=== PATIENT | male | born 1960 | race Two or more races ===

== ENCOUNTER 2019-04-04 06:05 | Inpatient (IN) | payer MEDICARE ==
[2019-04-04] VITALS (16 sets, daily range): BP systolic 119–145; BP diastolic 65–89
[~2019-04-04] VITALS: Ht 177.8 cm; Wt 76.2 kg
[~2019-04-04 06:05] MED LIST: PROSCAR5 MG ORAL
[2019-04-04] MEDS ORDERED: LR 1000ml 1,000 ML IVLG SCH (07:03)
--- NOTE | 2019-04-04 07:04 | Anethesia Preoperative Eval ---
Anesthesia Pre-op PMH/ROS General Date of Evaluation: Apr 04, 2019 Time of Evaluation: 08:01 Anesthesiologist: Scout ASA Score: ASA 2 Mallampati Score Class I : Soft palate, uvula, fauces, pillars visible Class II: Soft palate, uvula, fauces visible Class III: Soft palate, base of uvula visible Class IV: Only hard plate visible Mallampati Classification: Class I Surgeon: Dominique Diagnosis: R Hip Pain Surgical Procedure: R Hip Total Arthroplasty Anesthesia History: none Family History: no anesthesia problems Allergies: Coded Allergies: No Known Allergies (Unverified , 04/04/19) Medications: see eMAR Patient NPO?: Yes Past Medical History Cardiovascular: Reports: HTN Gastrointestinal/Genitourinary: Reports: GERD Musculoskeletal/Integumentary: Reports: OA PSxH Narrative: Appendectomy Anesthesia Pre-op Phys. Exam Physician Exam Vital Signs Date Time Temp Pulse Resp B/P (MAP) Pulse Ox O2 Delivery O2 Flow Rate FiO2 04/04/19 07:24 98.6 74 18 141/83 (102) 99 04/04/19 07:26 Room Air Constitutional: NAD Neurologic: CN 2-12 intact Cardiovascular: RRR Respiratory: CTA Gastrointestinal: S/NT/ND Airway Exam Mallampati Score: Class I MO: full ROM: full Teeth: intact Anesthesia Pre-op A/P Risk Assessment & Plan Assessment: ASA 2 Plan: GA, SED, Spinal Status Change Before Surgery: No Pre-Antibiotics Dru Grams Ancef IV Given Within 1 Hr of Incision: Yes Time Given: 08:31 Ariel Butterfield MD Apr 04, 2019 07:04
[2019-04-04] MEDS ORDERED: EPINEPHrine 1mg/1ml Amp ONE (07:05)
[2019-04-04] MEDS ORDERED: cloNIDine 1000mcg/10ml inj ONE (07:05)
[2019-04-04] MEDS ORDERED: Bupivacaine 0.5% Inj 30 ml vial INJ ONE (07:06)
[2019-04-04] MEDS ORDERED: Propofol 200mg/20ml IV ONE (07:10)
[2019-04-04] MEDS ORDERED: Dexamethasone 4mg/ml vial ONE (07:10)
[2019-04-04] MEDS ORDERED: Sodium Chloride 10ml vial INJ ONE (07:10)
[2019-04-04] MEDS ORDERED: Lidocaine 1% MPF 10mg/ml 5ml ONE ×2 (07:10→07:58)
[2019-04-04] MEDS ORDERED: Bacitracin 50000 Units Vial ONE (07:11)
[2019-04-04] MEDS ORDERED: NeoSporin Gu Irrig 1ml Amp IRRIG ONE (07:11)
[2019-04-04] MEDS ORDERED: Midazolam 2mg/2ml Inj IVP PRN (07:15)
[2019-04-04] MEDS ORDERED: Meperidine 25mg/0.5ml Inj (FOR RIGORS ONLY) IV PRN (07:15)
[2019-04-04] MEDS ORDERED: DiphenhydrAMINE 50mg/ml Inj IVP PRN (07:15)
[2019-04-04] MEDS ORDERED: fentaNYL 100 mcg/2 mL IV PRN (07:15)
[2019-04-04] MEDS ORDERED: HYDROcodone/Acetamin 7.5/325 tab ORAL PRN (07:15)
[2019-04-04] MEDS ORDERED: LORazepam Inj 2mg/ml 1ml IV PRN (07:15)
[2019-04-04] MEDS ORDERED: Ketorolac 30mg Inj IV PRN ×2 (07:15)
[2019-04-04] MEDS ORDERED: Hydromorphone 0.5mg/0.5ml inj IVP PRN (07:15)
[2019-04-04] MEDS ORDERED: Atropine Sulfate 0.4mg/ml inj IVP PRN (07:15)
[2019-04-04] MEDS ORDERED: oxyCODONE HCL/Acetaminophen 5/325mg ORAL PRN (07:15)
[2019-04-04] MEDS ORDERED: Metoclopramide 10mg/2ml Inj IVP PRN (07:15)
[2019-04-04] MEDS ORDERED: Tranexamic Acid 100 ML IVPB ONE (07:15)
[2019-04-04] MEDS ORDERED: Tranexamic Acid 1,000 MG in NS 65 ML IV ONE (07:15)
[2019-04-04] MEDS ORDERED: Labetalol 5mg/ml 20ml vial IV PRN (07:15)
[2019-04-04] MEDS ORDERED: HYDROcodone/Acetamin 5/325 tab ORAL PRN ×3 (07:15→15:45)
[2019-04-04] MEDS ORDERED: NS Irrig 2000ml IRRIG ONE ×2 (07:38→08:51)
[2019-04-04] MEDS ORDERED: NS Irrig 1000ml ONE (08:00)
[2019-04-04] MEDS ORDERED: Sterile Water Irrig 1000ml IRRIG ONE (08:00)
[2019-04-04] MEDS ORDERED: LR 1000ml ONE (08:00)
--- NOTE | 2019-04-04 08:00 | Pre-Procedure Note/Attestation ---
Pre-Procedure Note/Attestation Complete Prior to Procedure Planned Procedure: right Procedure Narrative: right total hip Indications for Procedure Pre-Operative Diagnosis: right hip arthritis Attestation I attest that I discussed the nature of the procedure; its benefits; risks and complications; and alternatives (and the risks and benefits of such alternatives ), prior to the procedure, with the patient (or the patient's legal territory representative). I attest that, if there was a reasonable possibility of needing a blood transfusion, the patient (or the patient's legal territory representative) was given the [facility] standardized written summary, pursuant to the Papito Iglesia Blood Safety Act ([place] Health and Safety Code # 1645, as amended). I attest that I re-evaluated the patient just prior to the surgery and that there has been no change in the patient's H&P, except as documented below: Mayank Fox MD Apr 04, 2019 08:00
--- NOTE | 2019-04-04 08:02 | Brief Operative Note ---
Immediate Post Operative Note Operative Note Pre-op Diagnosis: right hip arthritis Procedure: right total hip Post-op Diagnosis: rightb hip arthritis Post-op Diagnosis: same as pre-op Findings: consistent w/pre-op dx studies Surgeon: carmella Anesthesia: general Specimen: yes Complications: none Condition: stable Fluids: min Implant(s) used?: Yes Mayank Fox MD Apr 04, 2019 08:01
--- NOTE | 2019-04-04 08:08 | Immediate Post-Op Evaluation ---
Immediate Post-Op Evalulation Immediate Post-Op Evalulation Procedure: R Hip Total Arthroplasty Date of Evaluation: Apr 04, 2019 Time of Evaluation: 10:25 IV Fluids: 1000 LR Blood Products: 0 Estimated Blood Loss: 75 Urinary Output: 0 Blood Pressure Systolic: 143 Blood Pressure Diastolic: 86 Pulse Rate: 96 Respiratory Rate: 16 O2 Sat by Pulse Oximetry: 100 Temperature (Fahrenheit): 98 Pain Score (1-10): 2 Nausea: No Vomiting: No Complications 0 Patient Status: awake, reacts, patent, none Hydration Status: adequate Dru Grams Ancef IV Given Within 1 Hr of Incision: Yes Time Given: 08:31 Ariel Butterfield MD Apr 04, 2019 08:08
[2019-04-04] MEDS ORDERED: ePHEDrine 50mg/ml Inj ONE ×2 (08:59→09:18)
--- NOTE | 2019-04-04 11:09 | Diagnostic Imaging Report ---
Indication: Right hip pain, intraoperative Technique: One intraoperative view of the pelvis Comparison: none Findings: Intraoperative images demonstrate a right hip hemiarthroplasty prosthesis in place, appears well aligned. Retained air from the surgical exposure seen within the soft tissues. There is a Fernandes catheter Impression: Intraoperative imaging, no unusual features
--- NOTE | 2019-04-04 11:50 | NUR ---
NURSE NOTES: rec'd from pacu sp rt hip replacement/ awake/alert. v/s taken. no c/o pain. rt hip dressing dry and intact. ice pack on. with palpable pedal pulse. in no distress.
[2019-04-04] MEDS ORDERED: Morphine Sulfate 2mg/ml Inj(IV/IM USE ONLY) IVP PRN ×2 (12:00)
[2019-04-04] MEDS ORDERED: Morphine Sulfate 4mg/ml Inj (IV USE ONLY) IVP PRN (12:00)
--- NOTE | 2019-04-04 13:30 | NUR ---
NURSE NOTES: DR Stanley GEORGE NOTIFIED OF PT'S ADM AND RE HOME RECONCILIATION MED LIST. WITH ORDER.
--- NOTE | 2019-04-04 13:30 | NUR ---
NURSE NOTES: DR Stanley CARLSON NOTIFIED OF PT'S ADM.
[2019-04-04] MEDS: D5 1/2NS w/KCl 20mEq 1,000 ML IV SCH (13:55)
--- NOTE | 2019-04-04 15:42 | Diagnostic Imaging Report ---
Indication: Postoperative, status post surgery for hip pain Technique: One view of the pelvis Comparison: one Findings: Complete right hemiarthroplasty prosthesis demonstrated. This appears well aligned. Retained air from the surgical exposure seen in the soft tissues. There is a Fernandes catheter. Impression: Postoperative right hip. No unusual features
[2019-04-04] MEDS: ceFAZolin sod 2 GM in D5W 110 ML IV SCH ×2 (15:53→23:54)
[2019-04-04] MEDS ORDERED: Dronabinol 2.5mg Cap ORAL SCH ×2 (18:00→22:30)
--- NOTE | 2019-04-04 19:00 | NUR ---
NURSE NOTES: AWAKE. IN NO ACUTE DISTRESS.
--- NOTE | 2019-04-04 19:39 | NUR ---
HAND-OFF: Report given to Milton DONATO RN.
--- NOTE | 2019-04-04 20:41 | General Progress Note ---
Assessment/Plan Status Narrative s/p total hip arthroplasty pt ot dvt prophyalxis pain control monitor closely Assessment/Plan: monitor closely will follow dvt prophyalxis pain control PT OT monitor closely discussed with patient at [facility] Subjective Date patient seen: Apr 04, 2019 Time patient seen: 20:37 Constitutional: Reports: no symptoms HEENT: Reports: no symptoms Respiratory: Reports: no symptoms Gastrointestinal/Abdominal: Reports: no symptoms Allergies: Coded Allergies: No Known Allergies (Unverified , 04/04/19) Subjective has a lot of pain Objective Last 24 Hour Vital Signs Date Time Temp Pulse Resp B/P (MAP) Pulse Ox O2 Delivery O2 Flow Rate FiO2 04/04/19 17:51 97.7 04/04/19 15:00 97.7 86 21 145/79 (101) 99 04/04/19 14:00 98.6 77 20 145/76 (99) 98 04/04/19 13:00 97.2 62 19 144/77 (99) 97 04/04/19 12:00 Nasal Cannula 3.0 04/04/19 12:00 98.6 76 21 136/71 (92) 98 04/04/19 11:40 97.5 71 15 125/75 100 Room Air 3 04/04/19 11:30 81 16 124/72 100 Room Air 3 04/04/19 11:15 77 18 131/68 100 Room Air 3 04/04/19 11:05 73 15 122/83 100 Nasal Cannula 3 04/04/19 11:00 68 17 119/65 100 Nasal Cannula 3 04/04/19 10:50 76 19 128/70 100 Nasal Cannula 3 04/04/19 10:40 76 19 124/78 100 Nasal Cannula 3 04/04/19 10:30 79 18 135/80 100 Nasal Cannula 3 04/04/19 10:20 83 20 141/89 100 Nasal Cannula 3 04/04/19 10:14 91 16 134/85 100 Simple Mask 6 04/04/19 10:14 98.0 103 19 143/86 100 Simple Mask 6 04/04/19 10:10 96 16 100 04/04/19 07:26 Room Air 04/04/19 07:24 98.6 74 18 141/83 (102) 99 Height (Feet): 5 Height (Inches): 10.00 Weight (Pounds): 168 General Appearance: WD/WN Neck: normal alignment Cardiovascular: normal rate, regular rhythm, no JVD Respiratory/Chest: lungs clear Abdomen: non tender, soft Extremities: other - no edema Neurologic: alert, other Mauricio Flanagan MD Apr 04, 2019 20:41
[2019-04-04] MEDS: HYDROcodone/Acetamin 10/325 tab ORAL PRN (20:51)
[2019-04-04] MEDS: Dronabinol 2.5mg Cap ORAL SCH (22:24)
[2019-04-05] VITALS (7 sets, daily range): BP systolic 101–123; BP diastolic 63–81
--- NOTE | 2019-04-05 01:23 | NUR ---
NURSE NOTES: Pt keeps on moaning and reporting high levels of pain (7-10). Offered pain medication for 4-5x but pt refused every time as he "does not want to overdo it as I do not know when the norco and the other medication will kick in". Pt made aware to report when he wants to take pain medication. Offered other interventions to help relieve pain as well (ice packs, repositioning, etc.). Addendum: 04/05/19 at 0253 by Chon Lechuga RN Pt have been educated earlier this evening regarding pain medication options available but pt refused the IV pain medication option as he stated he "didn't want anything via IV". Dr. Patel made aware of pt's wishes when Dr. Patel called at [address] Patel discontinued IV pain medications and changed pt's PRN medications. Please see orders for details. Addendum: 04/05/19 at 0257 by Chon Lechuga RN At 0200, pt still keeps complaining of 10/10 pain. Reinforced education of the pain medications available and the importance of managing pain for overall recovery, pt finally asked for oral pain medication and is now willing to take IV pain medication. Dr. Patel made aware of pt's change of decision regarding pain medication options. Awaiting callback.
[2019-04-05] MEDS: HYDROcodone/Acetamin 10/325 tab ORAL PRN ×3 (01:48→20:08)
[2019-04-05] MEDS: D5 1/2NS w/KCl 20mEq 1,000 ML IV SCH ×2 (03:23→16:40)
--- NOTE | 2019-04-05 04:10 | NUR ---
NURSE NOTES: Received a call from Dr. Patel regarding pt's pain medication. Dr. Patel ordered new pain medication. Please see orders for details. He also specifically asked to "give Morphine 3 mg IVP at 0430 and to give Marinol an hour early (at 0530) and if possible, squeeze in to give [place] 10/325 an hour after Marinol (at 0630). Addendum: 04/05/19 at 0638 by Chon Lechuga RN New order repeated back, noted, and carried out.
[2019-04-05] MEDS ORDERED: Morphine Sulfate 4mg/ml Inj (IV USE ONLY) IVP PRN ×2 (04:30→07:30)
[2019-04-05] MEDS: Dronabinol 2.5mg Cap ORAL SCH ×3 (05:40→22:40)
[2019-04-05 06:38] LABS: BASOPHILS % (AUTO) 0.5 % (0.0-2.0); EOSINOPHILS % (AUTO) 0.1 % (0.0-3.0); HEMATOCRIT 36.5 % (42.0-52.0); HEMOGLOBIN 12.9 G/DL (14.2-18.0); LYMPHOCYTES % (AUTO) 16.5 % (20.0-45.0); MEAN CORPUSCULAR VOLUME 89 FL (80-99); MONOCYTES % (AUTO) 11.8 % (1.0-10.0); PLATELET COUNT 176 K/UL (150-450); RED BLOOD COUNT 4.09 M/UL (4.70-6.10); RED CELL DISTRIBUTION WIDTH 11.6 % (11.6-14.8); WHITE BLOOD COUNT 11.3 K/UL (4.8-10.8)
[2019-04-05 07:02] LABS: ANION GAP 8 mmol/L (5-15); BLOOD UREA NITROGEN 7 mg/dL (7-18); CALCIUM 8.9 MG/DL (8.5-10.1); CARBON DIOXIDE 28 MMOL/L (21-32); CHLORIDE 103 MMOL/L (98-107); CREATININE 0.8 MG/DL (0.55-1.30); POTASSIUM 3.8 MMOL/L (3.5-5.1); SODIUM 139 MMOL/L (136-145)
[2019-04-05] MEDS ORDERED: DiphenhydrAMINE 25mg Tab ORAL PRN (07:15)
[2019-04-05] MEDS ORDERED: Chloraseptic Spray 20mL Bottle ORAL PRN (07:15)
[2019-04-05] MEDS ORDERED: Milk of Magnesia 30ml Ud ORAL PRN (07:15)
[2019-04-05] MEDS ORDERED: Ketorolac 30mg Inj IV PRN (07:30)
--- NOTE | 2019-04-05 07:32 | NUR ---
HAND-OFF: Report given to JOEY Holt. Pt is awake and in stable condition. Plan of care endorsed.
--- NOTE | 2019-04-05 07:51 | NUR ---
NURSE NOTES: Pt received awake provided education in regards to pain medication. Encouraged to take medication prior to physical therapy. Current plan will be followed.
--- NOTE | 2019-04-05 08:29 | 48 Hour Post Anesthesia Eval ---
Post Anesthesia Evaluation Procedure: R Hip Total Arthroplasty Date of Evaluation: Apr 05, 2019 Time of Evaluation: 08:28 Blood Pressure Systolic: 116 0: 72 Pulse Rate: 62 Respiratory Rate: 20 Temperature (Fahrenheit): 97.4 O2 Sat by Pulse Oximetry: 98 Airway: patent Nausea: No Vomiting: No Pain Intensity: 3 Hydration Status: adequate Cardiopulmonary Status: stable Mental Status/LOC: patient returned to baseline Follow-up Care/Observations: n/a Post-Anesthesia Complications: none Follow-up care needed: N/A Diogo Mehta MD Apr 05, 2019 08:29
[2019-04-05] MEDS: Docusate 100mg cap ORAL SCH ×2 (08:32→18:12)
[2019-04-05] MEDS: Tamsulosin 0.4mg cap ORAL SCH (08:33)
[2019-04-05] MEDS: Enoxaparin 40mg Inj SUBQ SCH (08:35)
--- NOTE | 2019-04-05 09:15 | Consultation ---
DATE OF CONSULTATION: 04/05/2019 CONSULTING PHYSICIAN: Mauricio Patel M.D. REFERRING PHYSICIAN: Mayank Fox M.D. REASON FOR CONSULTATION: Acute pain consult. HISTORY OF PRESENT ILLNESS: Dear Dr. Mayank Fox, Thank you kindly for consulting me to evaluate and render an opinion as to how to proceed in the management of the patient's acute postoperative right hip pain after right total hip arthroplasty. I saw the patient at the bedside with the nurse RN, Chrissy. I discussed the case with the surgeon, Dr. Fox. I devised the following analgesic plan. I reviewed the medical record in detail. PAST MEDICAL HISTORY: 1. Acute postoperative right hip pain, status post right total hip arthroplasty by Dr. Mayank Fox in March 2019. 2. IV marijuana usage. 3. BPH. ALLERGIES: No known drug allergies. PAST SURGICAL HISTORY: Appendectomy. SOCIAL HISTORY: The patient denies tobacco usage. He denies significant alcohol usage. He smokes marijuana heavily throughout the day. MEDICATIONS: At home, Proscar. REVIEW OF SYSTEMS: Per Dr. Mauricio Flanagan. PHYSICAL EXAMINATION: VITAL SIGNS: Age 58, height 178 centimeters, weight 76 kg, body mass index 24. Vital signs, pain level 8/10 on the visual analog pain scale. Afebrile, pulse 72, respirations 18, blood pressure 113/74, oxygen saturation 96% on room air. I saw the patient at the bedside. I performed detailed history and physical examination. HEENT: Normocephalic and atraumatic. CHEST: Clear to auscultation. HEART: Regular rate and rhythm. ABDOMEN: Soft. EXTREMITIES: Right hip with dry dressing. Significant pain with range of motion. Moving all extremities x4. NEUROLOGIC: Detailed neurologic exam per Dr. Fox. DIAGNOSTIC TESTING: From this morning, postoperative day #1, April 05, 2019 shows white count 11, hematocrit 37, platelets 176. Sodium 139, potassium 3.8, chloride 103, bicarb 28, BUN 7, creatinine 0.8, glucose 113, calcium 8.9. INR 1.0, PTT 25. IMPRESSION: 1. Acute postoperative right hip pain, status post right total hip arthroplasty by Dr. Mayank Fox in March 2019. 2. IV marijuana usage. 3. BPH. TREATMENT RECOMMENDATIONS: I have devised the following analgesic plan to help with this patient's pain control. The patient uses marijuana throughout the day. I will start him on [id number] Marinol 2.5 mg q.8 hours. I encouraged the patient to request the breakthrough doses of morphine and [place], which are available. I trialed him on 3 mg intravenous morphine. This was tolerated, but the patient prefers to avoid parental narcotics as possible. I have increased the dosing to 4 mg and explained to the patient that he likely will have more pain once he begins ambulation, physical therapy training. I encouraged the p.r.n. morphine. Additionally, the patient uses [place] at home p.r.n. I have made available a 10 mg dose every three hours p.r.n. for moderate pain. Dr. Fox has permitted the patient to use IV Toradol as an anti-inflammatory. I have made this dose available at a 30 mg dose every 6 hours p.r.n. for mild pain, with a limit of five doses during this hospital stay. I will place the patient on Pepcid 20 mg b.i.d. for GI ulcer prophylaxis. I have added a p.r.n. dose of Mylanta 30 mL q.6 hours in case of any GERD symptom exacerbation. I have ordered Chloraseptic spray to help with any sore throat complaints postoperatively. I have ordered Benadryl 25 mg orally every 6 hours p.r.n. for itching symptoms. I have ordered Zofran 4 mg intravenously every 4 hours as a rescue antiemetic dose. I have ordered p.r.n. dose of milk of magnesia as a rescue laxative. I have also ordered Colace 100 mg b.i.d. as a stool softener. The patient will be restarted on his home Proscar for his BPH. I have also added Flomax daily as well to help with urinary evacuation. Dr. Fox, has placed the patient on Lovenox 40 mg daily for DVT prophylaxis. I encouraged aggressive incentive spirometer usage with his heavy marijuana smoking usage. I have left a prescription for [place] 50 tablets for outpatient usage. Mauricio Patel M.D. DR: JAZMINE JOB#: [id number] CC:
[2019-04-05] MEDS ORDERED: HYDROcodone/Acetamin 10/325 tab ORAL SCH (09:30)
--- NOTE | 2019-04-05 09:30 | General Progress Note ---
Assessment/Plan Status Narrative S/P THR MINIMAL BLOOD LOSS PT OT DVT RPOPHYALXIS PAINCONTROL DC PLANNING. Assessment/Plan: monitor closely will follow dvt prophyalxis pain control PT OT monitor closely discussed with patient at [facility] Subjective Date patient seen: Apr 05, 2019 Time patient seen: 09:28 Constitutional: Reports: no symptoms HEENT: Reports: no symptoms Cardiovascular: Reports: no symptoms Allergies: Coded Allergies: No Known Allergies (Unverified , 04/04/19) Subjective DOING BETTERE HAS PAIN NO FEVER NO CHILLS NO CHES TPAIN Objective Last 24 Hour Vital Signs Date Time Temp Pulse Resp B/P (MAP) Pulse Ox O2 Delivery O2 Flow Rate FiO2 04/05/19 08:29 62 20 98 04/05/19 04:00 98.9 72 18 113/74 (87) 96 04/05/19 00:00 99.0 73 19 123/71 (88) 98 04/04/19 21:00 Room Air 04/04/19 20:00 98.9 79 21 130/70 (90) 95 04/04/19 17:51 97.7 04/04/19 15:00 97.7 86 21 145/79 (101) 99 04/04/19 14:00 98.6 77 20 145/76 (99) 98 04/04/19 13:00 97.2 62 19 144/77 (99) 97 04/04/19 12:00 Nasal Cannula 3.0 04/04/19 12:00 98.6 76 21 136/71 (92) 98 04/04/19 11:40 97.5 71 15 125/75 100 Room Air 3 04/04/19 11:30 81 16 124/72 100 Room Air 3 04/04/19 11:15 77 18 131/68 100 Room Air 3 04/04/19 11:05 73 15 122/83 100 Nasal Cannula 3 04/04/19 11:00 68 17 119/65 100 Nasal Cannula 3 04/04/19 10:50 76 19 128/70 100 Nasal Cannula 3 04/04/19 10:40 76 19 124/78 100 Nasal Cannula 3 04/04/19 10:30 79 18 135/80 100 Nasal Cannula 3 04/04/19 10:20 83 20 141/89 100 Nasal Cannula 3 04/04/19 10:14 91 16 134/85 100 Simple Mask 6 04/04/19 10:14 98.0 103 19 143/86 100 Simple Mask 6 04/04/19 10:10 96 16 100 Intake and Output 04/04/19 04/05/19 19:00 07:00 Intake Total 685 ml 480 ml Output Total 1250 ml Balance -565 ml 480 ml Intake Oral 300 ml 480 ml IV Total 385 ml Output Urine Total 1250 ml # Voids 1 Laboratory Tests 04/05/19 05:05: White Blood Count 11.3H, Red Blood Count 4.09L, Hemoglobin 12.9L, Hematocrit 36.5L, Mean Corpuscular Volume 89, Mean Corpuscular Hemoglobin 31.5H, Mean Corpuscular Hemoglobin Concent 35.3, Red Cell Distribution Width 11.6, Platelet Count 176, Mean Platelet Volume 5.8L, Neutrophils (%) (Auto) 71.0, Lymphocytes ( %) (Auto) 16.5L, Monocytes (%) (Auto) 11.8H, Eosinophils (%) (Auto) 0.1, Basophils (%) (Auto) 0.5, Prothrombin Time 10.4, Prothromb Time International Ratio 1.0, Activated Partial Thromboplast Time 25, Sodium Level 139, Potassium Level 3.8, Chloride Level 103, Carbon Dioxide Level 28, Anion Gap 8, Blood Urea Nitrogen 7, Creatinine 0.8, Estimat Glomerular Filtration Rate > 60, Glucose Level 113H, Calcium Level 8.9 Height (Feet): 5 Height (Inches): 10.00 Weight (Pounds): 168 Mauricio Flanagan MD Apr 05, 2019 09:30
--- NOTE | 2019-04-05 09:35 | NUR ---
PT EVALUATION NOTE Patient seen for initial evaluation. Patient presents with pain and impaired functional mobility s/p R HARLEY. Patient instructed in THR precautions. Patient able to perform in/OOB tasks with min assist to support RLE, transfers sit <-> stand with CGA and FWW. Patient able to ambulate 150 ft with FWW and CGA, verbal cues to observe safety precautions. Patient will benefit from skilled inpatient PT intervention to address strength, safety and balance for increased level of independence with functional mobility. Anticipate discharge home once medically cleared by MD. Patient will benefit from crutches vs FWW for ambulation depending on patient's progress. Addendum: 04/05/19 at 1223 by ROGER CAMPBELL PT Amended: Links added.
--- NOTE | 2019-04-05 10:04 | NUR ---
NURSE NOTES: Pt refused Morphine after walking with physical therapy " I feel great" Asked to elaborate. " Well my pain is a 6 or a 7. Pain Scale explained. " I will take the other stuff" Toradol explained, and offered despite level being high /10. " I tghink I can sleep without taking anything I am okay".
[2019-04-05] MEDS: Ketorolac 30mg Inj IV PRN (11:47)
--- NOTE | 2019-04-05 13:25 | NUR ---
CASE MANAGEMENT:INITIAL REVIEW 58 YR OLD MALE FOR SCHEDULED SURGERY SI;RIGHT TOTAL HIP REPLACEMENT 99.0 78 20 123/71 96% ON RA IS;IVF D5 @ 75 ML/HR MARINOL PO Q8HRS NORCO PO Q3 HRS SHASHA STATUS DCP;FROM HOME Addendum: 04/05/19 at 1532 by GILES MAYORGA LVN INTERQUAL MET
--- NOTE | 2019-04-05 15:57 | NUR ---
REPORT MANAGER NOTE SW was notified that pt is requesting to meet w/ SW. SW met w/ pt and assessed his need. Pt states he has a question in regards to the possibility of rehabilitation upon DC. Pt resides in [place], [place] and he was staying w/ his family/friends prior to hospitalization. Pt uses a cane/walker for ambulation. Pt has a walker w/ him. IRON informed pt that IRON will relay information to [facility] CM. Eileen SHAIKH is aware. Signed: 04/05/19 at 1600 by HYACINTH PERDUE <Co-Signature Required>
--- NOTE | 2019-04-05 19:38 | NUR ---
NURSE NOTES: Pt reluctant to take Morphine and [place]. States he feels good and the pain is tolerable. Up and out of bed x 4. Stated he would just like to take the Toradol Dr Patel made aware earlier in shift. Tolerated physical therapy well .
--- NOTE | 2019-04-05 19:48 | NUR ---
HAND-OFF: Report given to Gin COOK .
--- NOTE | 2019-04-05 22:06 | NUR ---
NURSES NOTE: Met pt in bed, A/OX4, patient states 6/10 pain in left hip. [place] 10-325mg given. Effective. No outward s/s of distress needed. Breathing is even and unlabored on RA. Pt ambulated going to the bathroom, and in the hallway. Ambulation tolerated well. Abductor in place between thighs. Fernandes catheter in place, urine is light yellow in color with no sediment noted. SCD in place on the L lower extremity. All due meds will be given. Call light within reach. Bed at lowest level. Pt will continue to be monitored.
[2019-04-06] VITALS: BP 116/58
[2019-04-06] MEDS: HYDROcodone/Acetamin 10/325 tab ORAL PRN ×2 (00:09→15:08)
[2019-04-06 04:00] VITALS: BP 112/72
[2019-04-06] MEDS: Dronabinol 2.5mg Cap ORAL SCH ×3 (06:13→22:02)
[2019-04-06 07:14] LABS: BASOPHILS % (AUTO) 0.7 % (0.0-2.0); EOSINOPHILS % (AUTO) 0.8 % (0.0-3.0); HEMATOCRIT 33.4 % (42.0-52.0); HEMOGLOBIN 11.5 G/DL (14.2-18.0); LYMPHOCYTES % (AUTO) 27.9 % (20.0-45.0); MEAN CORPUSCULAR VOLUME 90 FL (80-99); MONOCYTES % (AUTO) 11.6 % (1.0-10.0); NEUTROPHILS % (AUTO) 58.9 % (45.0-75.0); PLATELET COUNT 168 K/UL (150-450); RED BLOOD COUNT 3.71 M/UL (4.70-6.10); RED CELL DISTRIBUTION WIDTH 11.6 % (11.6-14.8); WHITE BLOOD COUNT 8.5 K/UL (4.8-10.8)
[2019-04-06 07:37] LABS: ANION GAP 11 mmol/L (5-15); BLOOD UREA NITROGEN 8 mg/dL (7-18); CALCIUM 8.7 MG/DL (8.5-10.1); CARBON DIOXIDE 25 MMOL/L (21-32); CHLORIDE 103 MMOL/L (98-107); CREATININE 0.9 MG/DL (0.55-1.30); POTASSIUM 3.8 MMOL/L (3.5-5.1); SODIUM 139 MMOL/L (136-145)
--- NOTE | 2019-04-06 07:38 | NUR ---
HAND OFF: Report given to JOEY Palafox. Pt in stable condition.
[2019-04-06 08:00] VITALS: BP 145/81
--- NOTE | 2019-04-06 08:00 | NUR ---
NURSE NOTES: Received report from Lesa COOK, pt a/a/o seating in bbed eating breakfast with no signs of distress or other issues at this time. pt is able to ambulate around the unit with the use of a FWW and staff supervision. IV on the left AC gauge#20 heplock. Fernandes cath in place draining to gravity, total recruiter specialist out put: 1800ml. call light within reach, bed in lowest position, side rales up x2. I will f/u as needed.
[2019-04-06] MEDS: Tamsulosin 0.4mg cap ORAL SCH (08:25)
[2019-04-06] MEDS: Docusate 100mg cap ORAL SCH ×2 (08:25→17:31)
[2019-04-06] MEDS: Enoxaparin 40mg Inj SUBQ SCH (08:25)
--- NOTE | 2019-04-06 08:58 | General Progress Note ---
Assessment/Plan Status Narrative s/p thr doing well constipated Assessment/Plan: physical therpay ot to go to [facility] Subjective Date patient seen: Apr 06, 2019 Time patient seen: 08:57 Allergies: Coded Allergies: No Known Allergies (Unverified , 04/04/19) Subjective mahoney was removed doing ok no bm yet no ches tpain no sob no headache Objective Last 24 Hour Vital Signs Date Time Temp Pulse Resp B/P (MAP) Pulse Ox O2 Delivery O2 Flow Rate FiO2 04/06/19 04:00 98.2 62 18 112/72 (85) 98 04/06/19 00:00 98.4 82 17 116/58 (77) 96 04/05/19 21:00 Room Air 04/05/19 20:00 99.6 80 18 113/75 (88) 97 04/05/19 16:00 98.0 18 120/71 (87) 04/05/19 12:00 99.0 66 101/63 (76) 04/05/19 09:03 97.4 04/05/19 09:00 98.0 78 121/71 (88) 04/05/19 09:00 Room Air Intake and Output 04/05/19 04/06/19 19:00 07:00 Intake Total 700 ml Output Total 400 ml Balance 300 ml Intake Oral 700 ml Output Urine Total 400 ml # Bowel Movements 1 Laboratory Tests 04/06/19 05:00: White Blood Count 8.5, Red Blood Count 3.71L, Hemoglobin 11.5L, Hematocrit 33.4L , Mean Corpuscular Volume 90, Mean Corpuscular Hemoglobin 30.8, Mean Corpuscular Hemoglobin Concent 34.3, Red Cell Distribution Width 11.6, Platelet Count 168, Mean Platelet Volume 6.2L, Neutrophils (%) (Auto) 58.9, Lymphocytes ( %) (Auto) 27.9, Monocytes (%) (Auto) 11.6H, Eosinophils (%) (Auto) 0.8, Basophils (%) (Auto) 0.7, Sodium Level 139, Potassium Level 3.8, Chloride Level 103, Carbon Dioxide Level 25, Anion Gap 11, Blood Urea Nitrogen 8, Creatinine 0.9, Estimat Glomerular Filtration Rate > 60, Glucose Level 111H, Calcium Level 8.7 Height (Feet): 5 Height (Inches): 10.00 Weight (Pounds): 168 General Appearance: WD/WN Neck: supple Cardiovascular: normal rate, regular rhythm, no JVD Respiratory/Chest: lungs clear Abdomen: soft, no organomegaly Mauricio Flanagan MD Apr 06, 2019 08:58
--- NOTE | 2019-04-06 09:00 | NUR ---
NURSE NOTES: Received order to d/c Fernandes cath. RN removed Fernandes cath, pt was able to tolerate procedure well with no issues at this time. RN will monitor for post void. I will f/u as needed.
--- NOTE | 2019-04-06 09:45 | Progress Note ---
DATE: 04/06/2019 ACUTE PAIN MANAGEMENT PHYSICIAN PROGRESS NOTE MEDICATIONS: Medication administration record reviewed. Medications include Tylenol, Mylanta, Catapres, Benadryl, Colace, Marinol, Lovenox, Pepcid, Proscar, Wall, Toradol, milk of magnesia, morphine, Zofran, Chloraseptic spray, and Flomax. LABORATORY STUDIES: From this morning are pending. Yesterday's postoperative laboratories April 05, 2019, postop day #1, shows white count 11, hematocrit 37, platelets 176. OBJECTIVE: VITAL SIGNS: Within normal limits. Afebrile, pulse 62, respirations 18, blood pressure 112/72, oxygen saturation 98% on room air. I saw the patient at the bedside. I discussed the case with the charge nurse RN, Ollie and also Orthopedic floor nurse RN, Sharee. The patient has been out of bed, ambulating. He has been tolerating his scheduled Marinol and he is using p.r.n. Wall for breakthrough pain. Morphine remains available for severe rescue pain control, but the patient has been trying to avoid his medication. I have also ordered p.r.n. Toradol per the surgeon's request. The patient remains on Lovenox 40 mg daily for DVT prophylaxis. I encourage incentive spirometer usage with his heavy marijuana smoking habit. The patient is in good spirits. He has asked for prune juice to help with the severe constipation issues. He is sustaining. The patient also will continue on Colace and I have added p.r.n. dose of milk of magnesia as another laxative option. I left a prescription for Wall for outpatient usage. The patient has ample supply of marijuana for home usage as well. The patient is drinking adequate fluids. I will Hep-Lock his IV fluids to encourage ambulation out of bed. We will continue with physical therapy training as tolerated. Mauricio Patel M.D. DR: JAZMINE JOB#: [id number] CC:
[2019-04-06] MEDS: Ketorolac 30mg Inj IV PRN (10:02)
[2019-04-06 12:00] VITALS: BP 99/69
--- NOTE | 2019-04-06 14:14 | NUR ---
DISCHARGE PLANNING: PATIENT REFERRED BY DR. JUSTIN TO [facility] T:[phone] F:[phone] CLINICALS SENT Addendum: 04/06/19 at 1556 by GILES MAYORGA LVN TRICIA REVIEWING CLINICALS WILL F/U
--- NOTE | 2019-04-06 15:48 | NUR ---
CASE MANAGEMENT:REVIEW 04/06/2019 SI;RIGHT TOTAL HIP REPLACEMENT 99.7 64 20 99/69 98% ON RA IS;IVF D5 @ 75 ML/HR MARINOL PO Q8HRS NORCO PO Q3 HRS PROSCAR PO QD TORADOL Q6HR/PRN X5 DOSES LOVENOX SQ QD \: 3E MED SURG UNIT DCP: HOME WHEN STABLE PLAN: SNF PLACEMENT TO [facility] PER DR. MARGOTH Shaw
[2019-04-06 16:00] VITALS: BP 121/72
--- NOTE | 2019-04-06 17:14 | General Progress Note ---
Progress Note Progress Note doing well NVI ambulating xrays perfect with equal leg lengths drfer to Mayank Gaspar MD Apr 06, 2019 17:14
[2019-04-06] MEDS ORDERED: Tubing IV Secondary IV ONE (18:27)
--- NOTE | 2019-04-06 19:25 | NUR ---
HAND-OFF: Report given to Pina COOK, pt in stable condition. - during my shift pt was able to ambulate around the unit with steady gait and the use of the FWW. - pt ws able to void after Fernandes cath was removed.
--- NOTE | 2019-04-06 19:29 | NUR ---
NURSE NOTES: Received patient in bed, awake alert, oriented x4, able to ambulate with a walker, no acute distress noted, IV site is dry clean and intact. Call light is within reach, bed is lowered, locked, alarm is on, will continue to monitor for comfort and safety.
[2019-04-06 20:00] VITALS: BP 143/77
--- NOTE | 2019-04-06 20:52 | NUR ---
NURSE NOTES: Patient c/o chest paint, pointed to the shoulder area, refused to take any medications at this time, VSS, afebrile, could not verbalize on the scale 0-10 where his pain at. Requested for the RN to contact the MD and make his aware.
--- NOTE | 2019-04-06 21:14 | NUR ---
NURSE NOTES: Dr. Flanagan was notified of patients c/o chest pain, ECG is ordered.
[2019-04-07] VITALS: BP 137/78
[2019-04-07 04:00] VITALS: BP 127/77
[2019-04-07] MEDS: Dronabinol 2.5mg Cap ORAL SCH ×3 (05:37→21:40)
[2019-04-07 06:32] LABS: ANION GAP 11 mmol/L (5-15); BLOOD UREA NITROGEN 9 mg/dL (7-18); CALCIUM 9.4 MG/DL (8.5-10.1); CARBON DIOXIDE 26 MMOL/L (21-32); CHLORIDE 102 MMOL/L (98-107); POTASSIUM 3.7 MMOL/L (3.5-5.1); SODIUM 139 MMOL/L (136-145)
[2019-04-07 06:42] LABS: BASOPHILS % (AUTO) 1.1 % (0.0-2.0); HEMATOCRIT 37.3 % (42.0-52.0); HEMOGLOBIN 12.8 G/DL (14.2-18.0); LYMPHOCYTES % (AUTO) 25.9 % (20.0-45.0); MEAN CORPUSCULAR VOLUME 91 FL (80-99); MONOCYTES % (AUTO) 10.5 % (1.0-10.0); NEUTROPHILS % (AUTO) 61.6 % (45.0-75.0); PLATELET COUNT 204 K/UL (150-450); RED BLOOD COUNT 4.11 M/UL (4.70-6.10); RED CELL DISTRIBUTION WIDTH 11.3 % (11.6-14.8); WHITE BLOOD COUNT 8.9 K/UL (4.8-10.8)
--- NOTE | 2019-04-07 07:30 | NUR ---
NURSE NOTES: Received patient in bed asleep. No SOB or acute distress. IV line intact and patent. Wound dressing intact. HOB elevated. Bed locked in lowest position. Call light within reach. Will continue plan of care.
[2019-04-07 08:00] VITALS: BP 126/75
[2019-04-07] MEDS: Enoxaparin 40mg Inj SUBQ SCH (08:27)
[2019-04-07] MEDS: Docusate 100mg cap ORAL SCH ×2 (08:32→18:00)
[2019-04-07] MEDS: Tamsulosin 0.4mg cap ORAL SCH ×2 (08:32→09:06)
[2019-04-07 12:00] VITALS: BP 116/86
[2019-04-07 16:00] VITALS: BP 111/73
--- NOTE | 2019-04-07 19:00 | NUR ---
NURSE NOTES: Received Report from Reinaldo RN, pt sitting on the edge of the bed , A/OX4 calm, no s/s distress on RA breaths even regular and unlabored .. Denies pain, SOB or any NV. Pt has R Ac 20G hep locked , pt able to make needs known . Call light in reach, bed in low locked position, will continue to monitor.
--- NOTE | 2019-04-07 19:46 | NUR ---
HAND-OFF: Report given to radha.
[2019-04-07 20:00] VITALS: BP 132/81
--- NOTE | 2019-04-07 21:38 | General Progress Note ---
Assessment/Plan Assessment/Plan: s/p THR pt ot dvt prophylaxis paincontrol will follow Subjective Date patient seen: Apr 07, 2019 Time patient seen: 21:37 Constitutional: Reports: no symptoms Allergies: Coded Allergies: No Known Allergies (Unverified , 04/04/19) Subjective hwe has been having sasome pain no fever no chills no ches tpain Objective Last 24 Hour Vital Signs Date Time Temp Pulse Resp B/P (MAP) Pulse Ox O2 Delivery O2 Flow Rate FiO2 04/07/19 16:00 98.1 79 20 111/73 (86) 97 04/07/19 12:00 98.6 76 20 116/86 (96) 97 04/07/19 09:00 Room Air 04/07/19 08:00 98.4 83 22 126/75 (92) 97 04/07/19 06:13 99.5 04/07/19 04:00 98.1 87 18 127/77 (94) 97 04/07/19 00:00 98.7 78 18 137/78 (97) 98 Intake and Output 04/06/19 04/07/19 19:00 07:00 Intake Total 700 ml Output Total 1200 ml 1200 ml Balance -1200 ml -500 ml Intake Oral 700 ml Output Urine Total 1200 ml 1200 ml # Voids 1 # Bowel Movements 1 1 Laboratory Tests 04/07/19 05:15: White Blood Count 8.9, Red Blood Count 4.11L, Hemoglobin 12.8L, Hematocrit 37.3L , Mean Corpuscular Volume 91, Mean Corpuscular Hemoglobin 31.2H, Mean Corpuscular Hemoglobin Concent 34.4, Red Cell Distribution Width 11.3L, Platelet Count 204, Mean Platelet Volume 6.5, Neutrophils (%) (Auto) 61.6, Lymphocytes (%) (Auto) 25.9, Monocytes (%) (Auto) 10.5H, Eosinophils (%) (Auto) 1.0, Basophils (%) (Auto) 1.1, Sodium Level 139, Potassium Level 3.7, Chloride Level 102, Carbon Dioxide Level 26, Anion Gap 11, Blood Urea Nitrogen 9, Creatinine 1.0, Estimat Glomerular Filtration Rate > 60, Glucose Level 121H, Calcium Level 9.4 Height (Feet): 5 Height (Inches): 10.00 Weight (Pounds): 168 Mauricio Flanagan MD Apr 07, 2019 21:38
[2019-04-08] VITALS: BP 132/74
[2019-04-08 04:00] VITALS: BP 119/75
[2019-04-08] MEDS: Dronabinol 2.5mg Cap ORAL SCH ×3 (05:41→22:30)
[2019-04-08 07:29] LABS: BASOPHILS % (AUTO) 0.9 % (0.0-2.0); EOSINOPHILS % (AUTO) 1.4 % (0.0-3.0); HEMATOCRIT 35.4 % (42.0-52.0); HEMOGLOBIN 12.3 G/DL (14.2-18.0); LYMPHOCYTES % (AUTO) 30.9 % (20.0-45.0); MEAN CORPUSCULAR VOLUME 90 FL (80-99); MONOCYTES % (AUTO) 12.7 % (1.0-10.0); NEUTROPHILS % (AUTO) 54.1 % (45.0-75.0); PLATELET COUNT 222 K/UL (150-450); RED BLOOD COUNT 3.96 M/UL (4.70-6.10); RED CELL DISTRIBUTION WIDTH 11.4 % (11.6-14.8); WHITE BLOOD COUNT 8.9 K/UL (4.8-10.8)
--- NOTE | 2019-04-08 07:30 | NUR ---
NURSE NOTES: Received report from Jhonathan COOK. Patient is awake and oriented, no acute distress noted, reporting no pain at this time, right hip dressing clean, dry, intact. Walker at bedside. IV locked. Fall precautions maintained, patient updated on plan of care. Patient educated to call for assistance when getting OOB. Patient states he is comfortable getting in and out of bed with his walker and feels steady, RN still reinforced call light policy and fall precaution, patient in agreement and stated he will call for assistance as needed, non-slip socks on. Side rails upx2, bed low and locked, call light within reach.
[2019-04-08 08:00] VITALS: BP 124/78
[2019-04-08] MEDS: Tamsulosin 0.4mg cap ORAL SCH (09:59)
[2019-04-08] MEDS: Docusate 100mg cap ORAL SCH ×2 (09:59→17:39)
[2019-04-08] MEDS: Enoxaparin 40mg Inj SUBQ SCH (10:00)
[2019-04-08 12:00] VITALS: BP 127/74
[2019-04-08 16:00] VITALS: BP 125/74
--- NOTE | 2019-04-08 19:03 | General Progress Note ---
Assessment/Plan Assessment/Plan: s/p THR pt ot dvt prophylaxis paincontrol will follow dc tooecf when bede availabel Subjective Date patient seen: Apr 08, 2019 Time patient seen: 19:02 Constitutional: Reports: no symptoms HEENT: Reports: no symptoms Cardiovascular: Reports: no symptoms Respiratory: Reports: no symptoms Allergies: Coded Allergies: No Known Allergies (Unverified , 04/04/19) Subjective hwe has been having sasome pain no fever no chills no ches tpain Objective Last 24 Hour Vital Signs Date Time Temp Pulse Resp B/P (MAP) Pulse Ox O2 Delivery O2 Flow Rate FiO2 04/08/19 16:00 98.0 77 16 125/74 (91) 98 04/08/19 12:00 98.2 71 16 127/74 (91) 98 04/08/19 09:00 Room Air 04/08/19 08:00 99.6 84 16 124/78 (93) 97 04/08/19 04:00 99.3 72 19 119/75 (90) 97 04/08/19 00:00 99.0 79 19 132/74 (93) 97 04/07/19 21:00 Room Air 04/07/19 20:00 98.0 75 18 132/81 (98) 97 Intake and Output 04/07/19 04/08/19 19:00 07:00 Intake Total 400 ml Balance 400 ml Intake Oral 400 ml # Bowel Movements 1 Laboratory Tests 04/08/19 05:10: White Blood Count 8.9, Red Blood Count 3.96L, Hemoglobin 12.3L, Hematocrit 35.4L , Mean Corpuscular Volume 90, Mean Corpuscular Hemoglobin 31.0, Mean Corpuscular Hemoglobin Concent 34.6, Red Cell Distribution Width 11.4L, Platelet Count 222, Mean Platelet Volume 5.3L, Neutrophils (%) (Auto) 54.1, Lymphocytes (%) (Auto) 30.9, Monocytes (%) (Auto) 12.7H, Eosinophils (%) (Auto) 1.4, Basophils (%) (Auto) 0.9 Height (Feet): 5 Height (Inches): 10.00 Weight (Pounds): 168 General Appearance: WD/WN Neck: normal alignment Cardiovascular: regular rhythm, no JVD Respiratory/Chest: lungs clear, normal breath sounds Abdomen: soft Panchito,Mauricio S. MD Apr 08, 2019 19:03
--- NOTE | 2019-04-08 19:24 | NUR ---
HAND-OFF: Report given to Maria E COOK.
--- NOTE | 2019-04-08 19:39 | NUR ---
NURSE NOTES: Received patient in bed, awake, alert, oriented x4, able to make his needs known, IV site is clean dry and intact, no acute distress noted. Call light is within reach, bed is lowered, locked, alarm is on, will continue to monitor for comfort and safety.
[2019-04-08 20:00] VITALS: BP 114/72
[2019-04-09] VITALS: BP 129/87
[2019-04-09] MEDS: HYDROcodone/Acetamin 10/325 tab ORAL PRN (01:05)
[2019-04-09 04:00] VITALS: BP 119/70
[2019-04-09] MEDS: Dronabinol 2.5mg Cap ORAL SCH ×3 (06:32→21:40)
--- NOTE | 2019-04-09 07:30 | NUR ---
NURSE NOTES: Patient alert x4; on room air, no sing of distress and shortness of breath; no sing of chest pain; Iv Left AC 20G flushes well; walker within reach; side rails up x2, breaks engaged, bed at lowest position; call light within reach; will keep monitoring.
[2019-04-09 08:00] VITALS: BP 110/62
[2019-04-09] MEDS: Docusate 100mg cap ORAL SCH ×2 (09:00→17:47)
[2019-04-09] MEDS: Tamsulosin 0.4mg cap ORAL SCH (09:10)
[2019-04-09] MEDS: Enoxaparin 40mg Inj SUBQ SCH (09:12)
[2019-04-09] MEDS ORDERED: DOCUSATE SODIU100 MG ORAL (11:27)
[2019-04-09] MEDS ORDERED: DRONABINOL10 MG PO (11:29)
[2019-04-09] MEDS ORDERED: LOVENOX10 M4 SUBQ (11:30)
[2019-04-09] MEDS ORDERED: FAMOTIDINE20 MG ORAL (11:30)
[2019-04-09] MEDS ORDERED: PROSCAR5 MG ORAL (11:31)
[2019-04-09] MEDS ORDERED: FLOMAX0.4 MG ORAL (11:32)
[2019-04-09 12:00] VITALS: BP 134/81
--- NOTE | 2019-04-09 12:42 | NUR ---
DISCHARGE PLAN: PATIENT IS ACCEPTED TO [facility] T:[phone] FOR NURSE TO NURSE REPORT ROOM# 11A SKILLED [facility] PICKUP WITHIN THE HOUR
--- NOTE | 2019-04-09 14:44 | NUR ---
*-* CASE MANAGEMENT: MEDICARE APPEAL PATIENT HAS APPEALED HIS DISCHARGE WITH [facility]: CASE # [id number] COMPLETE MEDICAL RECORDS HAVE BEEN FAXED TO: [facility] F: [phone]
[2019-04-09 16:01] VITALS: BP 115/72
--- NOTE | 2019-04-09 16:12 | NUR ---
CASE MANAGEMENT:REVIEW 04/09/2019 SI;RIGHT TOTAL HIP REPLACEMENT 97.7 88 18 104/53 99% ON RA IS;IV [id number] IV VENOFER X5BAGS DIGOXIN PO QD IV LASIX QD PROTONIX BID MARINOL PO Q8HRS NORCO PO Q3 HRS PROSCAR PO QD TORADOL Q6HR/PRN X5 DOSES LOVENOX SQ QD \: 3E MED SURG UNIT DCP: HOME WHEN STABLE PLAN: PATIENT APPEALED DC
--- NOTE | 2019-04-09 19:46 | NUR ---
HAND-OFF: Report given to CamillaRN.
--- NOTE | 2019-04-09 19:48 | NUR ---
NURSE NOTES: Received report from Bert COOK. Rounding is done with outgoing nurse. Patient in bed, awake, and a/ox4. Patient request to change dressing and Changed dressing at this time. IV site is intact and patent. No SOB or any distress noted at this time. C/o pain 03/26. Will continue to monitor. Bed is on alarm, locked, and lowest position. Call light within reach. Will continue to monitor.
[2019-04-09 20:00] VITALS: BP 140/81
--- NOTE | 2019-04-09 21:54 | General Progress Note ---
Assessment/Plan Status Narrative s/p thr medical;l;y ok to discharge home Subjective Date patient seen: Apr 09, 2019 Time patient seen: 21:51 Constitutional: Reports: no symptoms Allergies: Coded Allergies: No Known Allergies (Unverified , 04/04/19) Subjective refused to be discharged [place] go [place] Objective Last 24 Hour Vital Signs Date Time Temp Pulse Resp B/P (MAP) Pulse Ox O2 Delivery O2 Flow Rate FiO2 04/09/19 20:00 99.3 77 18 140/81 (100) 97 04/09/19 16:01 98.7 80 21 115/72 (86) 98 04/09/19 14:23 99.3 04/09/19 12:00 99.3 97 20 134/81 (98) 97 04/09/19 09:00 Room Air 04/09/19 08:00 98.8 69 20 110/62 (78) 98 04/09/19 04:00 97.4 87 20 119/70 (86) 97 04/09/19 02:43 98.7 04/09/19 00:00 98.7 74 18 129/87 (101) 98 Intake and Output 04/08/19 04/09/19 19:00 07:00 Intake Total 600 ml Output Total 600 ml Balance 600 ml -600 ml Intake Oral 600 ml Output Urine Total 600 ml # Voids 3 Height (Feet): 5 Height (Inches): 10.00 Weight (Pounds): 168 General Appearance: alert Neck: supple Cardiovascular: normal rate, regular rhythm, no JVD Respiratory/Chest: lungs clear Abdomen: soft Extremities: no calf tenderness - knee wound has craig intact and there is significant swelling. Mauricio Flanagan MD Apr 09, 2019 21:54
[2019-04-10] VITALS: BP 111/67
[2019-04-10 04:00] VITALS: BP 108/72
[2019-04-10] MEDS: Dronabinol 2.5mg Cap ORAL SCH ×2 (05:35→14:24)
--- NOTE | 2019-04-10 07:24 | NUR ---
HAND-OFF: Report given to Cristela COOK. Patient in stable condition.
--- NOTE | 2019-04-10 07:52 | NUR ---
NURSE NOTES: AWAKE/ALERT. PAIN SCALE 7/10. RT HIP DRESSING DRY AND INTACT. GIVEN TYLENOL 650MG PO. WILL MONITOR PT.
[2019-04-10 08:00] VITALS: BP 115/68
[2019-04-10] MEDS: Docusate 100mg cap ORAL SCH ×2 (08:26→17:21)
[2019-04-10] MEDS: Tamsulosin 0.4mg cap ORAL SCH (08:26)
[2019-04-10] MEDS: Enoxaparin 40mg Inj SUBQ SCH (08:30)
--- NOTE | 2019-04-10 09:00 | NUR ---
PT NOTE Attempted to see patient for PT treatment. Patient requesting that therapist return later as he is working on his discharge plans. Will follow up in p.m.
[2019-04-10 12:00] VITALS: BP 120/75
--- NOTE | 2019-04-10 14:36 | NUR ---
DISCHARGE PLANNING: APPEAL SPOKE TO PATIENT AT BEDSIDE PATIENT IS AWARE THAT [facility] IS ACCEPTING CM ASKED PATIENT IF HE IS READY TO DISCHARGE PATIENT STATED "NO, HE IS NOT READY" PATIENT MADE AWARE THAT BED COULD NOT BE AVAILABLE TOMORROW PATIENT STATED HE WILL WAIT FOR APPEAL DECISION
--- NOTE | 2019-04-10 14:42 | NUR ---
DISCHARGE APPEAL: PATIENT CASE STILL PENDING
[2019-04-10 16:01] VITALS: BP 125/77
--- NOTE | 2019-04-10 16:46 | NUR ---
*-*DISCHARGE PLANNING*-* PATIENT HAS BEEN ACCEPTED AT: [facility] P: [phone] F: [phone] RM# 11.A [facility] [id number] ETA 6:00PM/ 1800PM
--- NOTE | 2019-04-10 16:52 | NUR ---
*-*DISCHARGE PLANNED*-* PATIENT IS BEING DISCHARGED TO: [facility] P: [phone] F: [phone] RM# 11.A [facility] [id number] ETA 6:00PM/ 1800PM
--- NOTE | 2019-04-10 18:00 | NUR ---
NURSE NOTES: ADMITTED A 58 YR OLD MALE WITH DX OF ENCEPALOPATHY. AWAKE /ALERT X1. ADM CARE DONE. UNABLE TO GET FULL ADM ASSESSMENT. PT UNABLE GIVE INFORMATION. PT CONFUSED. Addendum: 04/10/19 at 1901 by KENJI LAWRENCE RN DISREGARD ABOVE NOTATION. INCORRECT PT.
--- NOTE | 2019-04-10 19:00 | NUR ---
NURSE NOTES: REPORT GIVEN TO ANTONIA COOK AT [facility].
--- NOTE | 2019-04-10 19:04 | NUR ---
NURSE NOTES: PT FOR TRANSFER TO [facility]. WAITING FOR TRANSPORTATION.
--- NOTE | 2019-04-10 19:28 | NUR ---
NURSE NOTES: Patient sitting up in chair, awaiting transportation.
--- NOTE | 2019-04-10 19:33 | NUR ---
NURSE NOTES: Report received from JOEY Archibald. No distress noted, patient sitting up in chair waiting for transport. No complaints of pain at this time. Has been ambulating steadily with walker assistance this evening.
--- NOTE | 2019-04-10 19:33 | NUR ---
HAND-OFF: Report given to Lilly KING RN.
--- NOTE | 2019-04-10 20:01 | NUR ---
NURSE NOTES: Transport here to pick remover patient, patient was giving tylenol for pain, no distress noted. All belongings with him, paperwork was signed by previous AM RN.
--- NOTE | 2019-04-10 20:05 | NUR ---
NURSE NOTES: Patient discharged, paperwork given to transport. Via transport to post acute care. Condition stable, patient in good spirits, smiling.
--- NOTE | 2019-04-11 17:29 | Discharge Summary ---
Discharge Summary Hospital Course Date of Admission Apr 04, 2019 at 06:05 Date of Discharge Apr 10, 2019 at 20:05 Admitting Diagnosis right hip osteoarthritis Reason for Hospitalization: elective surgery HPI Philipp Luna is a 58 year old male who was admitted on Apr 04, 2019 at 06:05 for Right Hip Osteoarthritis Consultations Dr Flanagan -IM Dr Patel - pain specialist Procedures s/p 04/04/[address] Fox right total hip arthroplasty Hospital Course Status post surgery course of recovery uneventful initially IV fluids s/p perioperative antibiotics neurovascular status closely monitored, remained stable incision with dressing: clean , dry and intact pain management was addressed pain specialist followed; pain was controlled remained hemodynamically stable ambulated with PT hip precautions maintained fall precautions maintained; safe for ambulation DVT prophylaxis provided use of incentive spirometry was encouraged while in the bed tolerated diet , IV fluids discontinued GI prophylaxis provided antiemetics were on board as needed voided freely bowel regimen instituted patient was stable for discharge discharge instructions provided follow up with surgeon in the office as advised FINAL DIAGNOSES right hip osteoarthritis status post right total hip arthroplasty Discharge Medications Continued Medications: Docusate Sodium* (Docusate Sodium*) 100 Mg Capsule 100 MG ORAL TWICE A DAY for schedules, CAP (This prescription has been renewed) Dronabinol (Dronabinol) 10 Mg Capsule 2.5 MG PO Q8HR for scheduled, CAP (This prescription has been renewed) Enoxaparin* (Lovenox*) 40 Mg/0.4 Ml Inj 40 MG SUBQ DAILY for scheduled (This prescription has been renewed) Famotidine* (Pepcid 20mg tablet*) 20 Mg Tablet 20 MG ORAL TWICE A DAY for scheduled, #60 TAB 0 Refills (This prescription has been renewed) Finasteride* (Proscar*) 5 Mg Tablet 5 MG ORAL DAILY for as prescribed, #30 TAB 0 Refills (This prescription has been renewed) Tamsulosin HCl (Flomax) 0.4 Mg Cap.er.24h 0.4 MG ORAL DAILY for scheduled, CAP (This prescription has been renewed) Discharge Condition Upon Discharge: stable Discharge Vital Signs Last Vital Signs Date Time Temp Pulse Resp B/P (MAP) Pulse Ox O2 Delivery O2 Flow Rate FiO2 04/10/19 16:01 99.2 76 20 125/77 (93) 98 04/10/19 09:25 Room Air 04/04/19 21:00 Discharge Disposition Patient was discharged to SNF/Subacute Facility(03) Discharge Instructions Discharge Instructions Special Instructions I have been assigned to complete a D/C Summary on this account. I was not involved in the patient management Mercy Harper NP Apr 11, 2019 17:29
--- NOTE | 2019-04-12 06:30 | Operative Note - Dictated ---
PREOPERATIVE DIAGNOSES: 1. Hip shortening, right hip, by 2 inches. 2. Right hip open reduction and internal fixation. POSTOPERATIVE DIAGNOSES: 1. Hip shortening, right hip, by 2 inches. 2. Right hip open reduction and internal fixation. PROCEDURE: Modifier 22 right hip replacement, equalization of leg lengths. SURGEON: Mayank Fox M.D. LABORATORY EQUIPMENT CLEANER: Unknown. FORESTRY SUPPORT SPECIALIST: None. PREOPERATIVE NOTE: This is a pleasant gentleman who has had issues with his hip associated with shortening. I explained to him the surgery and risks and failure of surgery. The patient agreed. Consents were obtained. OPERATIVE ROOM NOTE: Under the benefit of IV sedation and general anesthetic, the patient was given 1 g of Ancef. A posterolateral incision was made and incised through subcutaneous tissue down through the TFL. At which point, I then proceeded to do a T-capsulotomy and dislocated the hip. After dislocating the hip, noticed there did osteotomy above the lesser troch and in doing so, right side to be a 54. Then, I started with a 46 reamer with 45 degrees of vertical inclination and 15 degrees of anteversion, proceeded up to a 53, accepting 54 and then in the 54 cup, great press-fit with perfect alignment and then worked on the stem, regulr stem up to 7, started from the 0, going up to 7, broaching it. is the perfect with a ceramic head and . I reduced this after multiple attempts and then x-rayed perfect, 3.5. I placed the actual implant in a press-fit, no cementing used. Irrigated the wound copiously, closing the retinaculum with #1 Vicryl, TFL with 1 Vicryl, subcutaneous tissue with 2-0 Vicryl, and skin with craig. There were no complications. The patient went to recovery room in stable condition. The patient equal leg lengths also on clinical examination . Mayank Fox M.D. DR: HAVEN JOB#: [id number] CC:
== END 2019-04-10 20:05 | DRG 470 ==
LOC: SDSOVERFLO 06:05 → EDSTATUS 07:30 → 3E 11:53 → UNDODISIN 04-10 20:05
PROC: 0SR902A Replacement of Right Hip Joint with Metal on Polyethylene Synthetic Substitute, Uncemented, Open Approach (ICD-10-PCS; principal; 2019-04-04 07:30)
DX: M16.11 Unilateral primary osteoarthritis, right hip (principal); N40.0 Benign prostatic hyperplasia without lower urinary tract symptoms; G89.18 Other acute postprocedural pain
CPT/HCPCS: 36415; 72170; 80048; 85025; 85610; 85730; 86850; 86900; 86901; 87081; 93005; 94003; 94150; J2405